=== PATIENT | male | born 1945 | race Caucasian/White ===

== ENCOUNTER → 2019-11-21 05:00 | Outpatient (REF) | payer MEDICARE, BC, OTHER, SELFPAY ==
[2019-11-21 07:29] LABS: Absolute Lymphocyte Count 1.79 X10^3/uL (0.83-4.51); Absolute Neutrophil Count 4.3 X10^3/uL (2.0-7.7); Basophil# 0.04 X10^3/uL; Basophil% 0.6 % (0-1); Eosinophil# 0.05 X10^3/uL; Eosinophils% 0.7 % (0-5); Hematocrit 51.9 % (40-54); Hemoglobin 16.9 g/dL (13.0-16.5); Lymphocyte # 1.79 X10^3/ul (4.0); Lymphocyte % 25.8 % (19-41); Mean Corp Hgb Conc 32.6 g/dL (32-36); Mean Corpuscular Hgb 29.8 pg (27.0-32.0); Mean Corpuscular Volume 91.5 fL (80-94); Mean Platelet Vol. 9.4 fl (6.2-12.0); Monocyte% 10.1 % (0-10); NRBC Flagged by Analyzer 0 % (0-5); Neutrophil # 4.34 X10^3/uL (2.7-7.7); Neutrophil % 62.5 % (47-70); Platelet Count 235 K/mm3 (150-450); RBC Distribution Width CV 13.3 % (11.6-14.6); Red Blood Count 5.67 M/mm3 (4.6-6.2); White Blood Count 6.9 K/mm3 (4.4-11.0)
[2019-11-21 08:59] LABS: Vitamin B12 717 pg/mL (211-911)
== END ==
LOC: OLS.BROOKB 05:00
PROVIDERS: Visit Provider Family Medicine
DX: D64.9 Anemia, unspecified (principal); F03.90 Unspecified dementia, unspecified severity, without behavioral disturbance, psychotic disturbance, mood disturbance, and anxiety; E78.5 Hyperlipidemia, unspecified
CPT/HCPCS: 36415; 82607; 85025

== ENCOUNTER → 2020-05-10 08:00 | Outpatient (REF) | payer MEDICARE, OTHER, BC, SELFPAY ==
[2020-05-09 10:48] VITALS: BMI 28.6
[2020-05-10 11:59] LABS: Hematocrit 51.5 % (40-54); Hemoglobin 16.2 g/dL (13.0-16.5); Mean Corp Hgb Conc 31.5 g/dL (32-36); Mean Corpuscular Hgb 29.8 pg (27.0-32.0); Mean Corpuscular Volume 94.7 fL (80-94); Mean Platelet Vol. 10.1 fl (6.2-12.0); Platelet Count 205 K/mm3 (150-450); RBC Distribution Width CV 13.4 % (11.6-14.6); RBC Distribution Width SD 46.5 fl (35.1-43.9); Red Blood Count 5.44 M/mm3 (4.6-6.2); White Blood Count 5.7 K/mm3 (4.4-11.0)
[2020-05-10 12:14] LABS: Vitamin B12 375 pg/mL (211-911)
[2020-05-10 12:25] LABS: AST(SGOT) 18 U/L (15-37); Alanine Aminotransfer ALT/SGPT 30 U/L (16-61); Albumin, Serum 3.5 g/dL (3.2-5.0); Alkaline Phosphatase 92 U/L (45-117); Anion Gap 0 (5-15); BUN 16 mg/dL (7-18); BUN/Creat Ratio 20.6 RATIO (10-20); Calcium,Total 9.1 mg/dL (8.5-10.1); Chloride 107 mmol/L (98-107); Creatinine, Serum 0.78 mg/dL (0.70-1.30); EST Glomerular Filtration Rate 104 mL/min (>60); Est Glom Filt Rate - Afr Amer 126 mL/min (>60); Globulin 3.5 g/dL (2.2-4.2); Glucose 87 mg/dL (74-106); Sodium Level 140 mmol/L (136-145); Thyroid Stim Hormone (TSH) 2.41 uIU/mL (0.358-3.74)
== END ==
LOC: OLS.BROOKB 08:00
DX: F03.90 Unspecified dementia, unspecified severity, without behavioral disturbance, psychotic disturbance, mood disturbance, and anxiety (principal); E78.5 Hyperlipidemia, unspecified; F41.9 Anxiety disorder, unspecified; Z86.010 Personal history of colon polyps
CPT/HCPCS: 80053; 82607; 82746; 84443; 85027

== ENCOUNTER → 2020-05-31 17:00 | Outpatient (REF) | payer MEDICARE, OTHER, BC, SELFPAY ==
[2020-05-09 10:48] VITALS: BMI 28.6
[2020-05-31 18:31] LABS: Absolute Lymphocyte Count 1.32 X10^3/uL (0.83-4.51); Absolute Neutrophil Count 3.3 X10^3/uL (2.0-7.7); Basophil# 0.03 X10^3/uL; Basophil% 0.6 % (0-1); Eosinophil# 0.07 X10^3/uL; Eosinophils% 1.3 % (0-5); Hematocrit 49.3 % (40-54); Hemoglobin 15.7 g/dL (13.0-16.5); Lymphocyte # 1.32 X10^3/ul (4.0); Lymphocyte % 24.6 % (19-41); Mean Corp Hgb Conc 31.8 g/dL (32-36); Mean Corpuscular Hgb 29.8 pg (27.0-32.0); Mean Corpuscular Volume 93.7 fL (80-94); Mean Platelet Vol. 9.9 fl (6.2-12.0); Monocyte# 0.58 X10^3/uL; Monocyte% 10.8 % (0-10); NRBC Flagged by Analyzer 0 % (0-5); Neutrophil # 3.34 X10^3/uL (2.7-7.7); Neutrophil % 62.3 % (47-70); Platelet Count 184 K/mm3 (150-450); RBC Distribution Width CV 13.5 % (11.6-14.6); Red Blood Count 5.26 M/mm3 (4.6-6.2); White Blood Count 5.4 K/mm3 (4.4-11.0)
== END ==
DX: Z79.899 Other long term (current) drug therapy (principal)
CPT/HCPCS: 82140; 85025

== ENCOUNTER → 2020-06-06 11:30 | Outpatient (REF) | payer MEDICARE, OTHER, SELFPAY ==
[2020-05-09 10:48] VITALS: BMI 28.6
[2020-06-06 15:21] LABS: Valproic Acid (Depakene) Level 15 ug/mL (50-100)
== END ==
DX: F03.90 Unspecified dementia, unspecified severity, without behavioral disturbance, psychotic disturbance, mood disturbance, and anxiety (principal); F33.9 Major depressive disorder, recurrent, unspecified; F41.9 Anxiety disorder, unspecified
CPT/HCPCS: 80164

== ENCOUNTER → 2020-06-17 16:58 | Outpatient (CLI) | payer MEDICARE, OTHER, SELFPAY ==
[2020-05-09 10:48] VITALS: BMI 28.6
== END ==
PROVIDERS: Referring Provider Nurse Practitioner Adult Health; Visit Provider Nurse Practitioner Adult Health
DX: R79.9 Abnormal finding of blood chemistry, unspecified (principal)
CPT/HCPCS: 87086

== ENCOUNTER → 2020-06-17 19:45 | Outpatient (REF) | payer MEDICARE, OTHER, SELFPAY ==
[2020-05-09 10:48] VITALS: BMI 28.6
[2020-06-18 07:24] LABS: Mucous, Urine 0 SEEN /hpf (<or=2+); Red Blood Cells-Urine 0 SEEN /hpf (0-5); Squamous Epithelial Cells - UA 0 SEEN /hpf (0-5)
[2020-06-18 07:44] LABS: Color, Urine Yellow (Yellow); Glucose, Dipstick Normal (Normal); Ketone-Dipstick 5 mg/dl (Negative); Leukocyte Esterase-Dipstick 500 /ul (Negative); Nitrite-Dipstick Negative (Negative); Occult Blood-Urine Negative /ul (Negative); Protein-Dipstick Negative (Negative); Specific Gravity, Urine 1.025 (1.002-1.030); Urine Bilirubin Dipstick Negative (Negative); Urine Clarity Clear (Clear); Urine Urobilinogen Normal (Normal)
[2020-06-18 07:58] LABS: White Blood Cells 5-10 SEEN /hpf (0-5)
[2020-06-18 07:59] LABS: Bacteria 2+ /hpf (None Seen)
== END ==
LOC: OLS.BROOKB 19:45
PROVIDERS: Visit Provider Family Medicine
DX: N39.0 Urinary tract infection, site not specified (principal); F41.9 Anxiety disorder, unspecified; E78.5 Hyperlipidemia, unspecified
CPT/HCPCS: 81001; 87086; 87088

== ENCOUNTER → 2020-07-16 08:20 | Outpatient (REF) | payer MEDICARE, OTHER, BC, SELFPAY ==
[2020-06-20 14:36] VITALS: BMI 28.6
[2020-07-16 10:58] LABS: AST(SGOT) 19 U/L (15-37); Alanine Aminotransfer ALT/SGPT 25 U/L (16-61); Anion Gap 2 (5-15); BUN 14 mg/dL (7-18); BUN/Creat Ratio 17.9 RATIO (10-20); Calcium,Total 8.9 mg/dL (8.5-10.1); Chloride 105 mmol/L (98-107); Cholesterol 197 mg/dL (200); Creatinine, Serum 0.78 mg/dL (0.70-1.30); EST Glomerular Filtration Rate 103 mL/min (>60); Est Glom Filt Rate - Afr Amer 125 mL/min (>60); Glucose 83 mg/dL (74-106); High Density Lipoprotein 68 mg/dL; Potassium 3.6 mmol/L (3.5-5.1); Sodium Level 142 mmol/L (136-145); Triglycerides 99 mg/dL; Very Low Density Lipoprotein 20 mg/dL (5-40)
== END ==
LOC: OLS.BROOKB 08:20
PROVIDERS: Referring Provider Family Medicine; Visit Provider Family Medicine
DX: F03.90 Unspecified dementia, unspecified severity, without behavioral disturbance, psychotic disturbance, mood disturbance, and anxiety (principal); E78.5 Hyperlipidemia, unspecified
CPT/HCPCS: 80048; 80061; 84450; 84460

== ENCOUNTER 2020-08-17 10:45 | Observation (INO) | payer MEDICARE, OTHER, BC, SELFPAY ==
[2020-06-20 14:36] VITALS: BMI 28.6
[2020-08-17] VITALS (16 sets, daily range): BP systolic 139–176; BP diastolic 76–97; PULSE 52–68; RESP 9–23; TEMP 36.6–36.7; O2SAT 94–99; BMI 27.3; BMI 27.1
--- NOTE | 2020-08-17 10:50 | EKG12_ITS ---
Test Reason : WEAKNESS Blood Pressure : / mmHG Vent. Rate : 060 BPM Atrial Rate : 060 BPM P-R Int : 126 ms QRS Dur : 088 ms QT Int : 464 ms P-R-T Axes : 060 -42 023 degrees QTc Int : 464 ms Normal sinus rhythm Left axis deviation Abnormal ECG Confirmed by JERI ESPINOSA, HUNTER ([id number]), assistant production editor AUBREE CASTELLANOS ([id number]) on 08/20/2020 10:20:49 AM Referred By: DC Confirmed By:HUNTER WILCOX MD
--- NOTE | 2020-08-17 10:50 | CT_ITS ---
We are attempting to reach an attending provider to discuss findings. An addendum with communication details will be sent when the communication is complete. STUDY: CT BRAIN WITHOUT CONTRAST REASON FOR EXAM: Male, 74 years old. WEAKNESS RADIATION DOSAGE (If Supplied By Facility): CTDIvol = ( 44.99 ) mGy, DLP = ( 812.98 ) mGycm TECHNIQUE: Transaxial CT imaging of the brain was performed without administration of intravenous contrast material. Individualized dose optimization techniques were used for this CT. COMPARISON: No relevant priors. FINDINGS: Normal soft tissue structures. Normal calvarium. Slightly prominent ventricles and extra-axial spaces with mild atrophy. Bilateral white matter microangiopathic ischemic changes of the cerebral hemispheres. Normal basal ganglia and thalami. Normal brainstem. Normal cerebellum. There is no intracranial hemorrhage. There are no findings of an acute ischemic infarction. Normal visualized paranasal sinuses. CT/Brain/Head without Contrast IMPRESSION: Mild age-related changes of the brain. Electronically Signed: Juan Chinchilla DO at 11:15 EDT Tel [phone], Service support ,
--- NOTE | 2020-08-17 10:52 | ED.DCSUM_ITS ---
- ER Visit Summary Date of Service: 08/17/20 Chief Complaint: Possible stroke, patient has no complaints History of Present Illness: The patient is a 74 M with a history of dementia, full code. He presents from his nursing facility by EMS. He was last known well at 7:30 AM today. At 8:30 AM he was noted to be leaning to the left with a shuffling gait. This is different from his normal baseline. Currently the patient has no complaints. EMS did not notice any focal neurologic abnormalities. Physical Examination: Vital signs reviewed. Patient does not know his age or the month, otherwise his stroke scale was normal. Heart regular. Lungs clear. Abdomen soft. Test Results: CT, chest x-ray, EKG, labs pending Emergency Department Course and Treatment: Patient was seen immediately on arrival. His NIH stroke scale is normal except he does not know the month and his age. This may be normal for him at his baseline. He is not a TPA candidate. Will evaluate him and plan on admitting him here. CT was unremarkable. Chest x-ray normal. EKG showed sinus rhythm at a rate of 60. No signs of ischemia or infarction pattern. CBC, BMP, coags, troponin unremarkable. Urinalysis is pending. Patient had no further symptoms. Will contact the hospitalist to admit for further care. Treatment Plan: As above Disposition: Admission Impression: Abnormality of gait This note was generated with [employer] dictation software. It may contain incorrect words, spelling, and punctuation that were not noted in review of the chart prior to signing ED Disposition - Plan for ED Patient: Referrals: [facility] Doctor,Out of [NON-STAFF] -
--- NOTE | 2020-08-17 11:00 | RAD_ITS ---
STUDY: X-RAY CHEST REASON FOR EXAM: Male, 74 years old. WEAKNESS, SHUFFLED GAIT AND LEANING TO LEFT WHILE AMBULATING THAT RESOLVED. SPILLING FOOD FROM FORK. FIRST NOTICED AT 0830. TECHNIQUE: Single AP portable view of the chest. COMPARISON: None. FINDINGS: The lungs are clear and expanded. There is no demonstrated pleural abnormality. Normal size heart. Normal mediastinum and fermín. Normal visualized pulmonary arteries. Normal visualized aortic arch and descending thoracic aorta. Normal visualized thoracic spine. Normal visualized ribs, clavicles, and shoulders. There is no demonstrated abnormality of the visualized soft tissue structures of the upper abdomen. RAD/Chest 1 View IMPRESSION: Normal x-ray examination of the chest. Electronically Signed: Jamar Lopez MD at 11:30 EDT Tel , Service support ,
--- NOTE | 2020-08-17 11:00 | ED.RN ---
PT HAS DEMENTIA, REASON FOR SCORING 2 ON QUESTIONS ASKED.
[2020-08-17 11:30] LABS: Bedside Glucose 108 mg/dL (70-110)
[2020-08-17 11:33] LABS: Absolute Neutrophil Count 3.6 X10^3/uL (2.0-7.7); Basophil# 0.03 X10^3/uL; Basophil% 0.5 % (0-1); Eosinophil# 0.06 X10^3/uL; Eosinophils% 1.1 % (0-5); Hematocrit 47.1 % (40-54); Lymphocyte % 21.9 % (19-41); Mean Corp Hgb Conc 31.8 g/dL (32-36); Mean Corpuscular Hgb 30.2 pg (27.0-32.0); Mean Corpuscular Volume 94.8 fL (80-94); Mean Platelet Vol. 9.5 fl (6.2-12.0); Monocyte# 0.58 X10^3/uL; Monocyte% 10.6 % (0-10); NRBC Flagged by Analyzer 0 % (0-5); Neutrophil % 65.7 % (47-70); Platelet Count 153 K/mm3 (150-450); RBC Distribution Width CV 13.4 % (11.6-14.6); RBC Distribution Width SD 47.1 fl (35.1-43.9); Red Blood Count 4.97 M/mm3 (4.6-6.2); White Blood Count 5.5 K/mm3 (4.4-11.0)
[2020-08-17 11:59] LABS: Anion Gap 2 (5-15); BUN 13 mg/dL (7-18); BUN/Creat Ratio 16.4 RATIO (10-20); Calcium,Total 8.7 mg/dL (8.5-10.1); Chloride 107 mmol/L (98-107); Creatinine, Serum 0.79 mg/dL (0.70-1.30); EST Glomerular Filtration Rate 101 mL/min (>60); Est Glom Filt Rate - Afr Amer 123 mL/min (>60); Estimated Creatinine Clearance 66.92 ml/min; Glucose 99 mg/dL (74-106); Sodium Level 141 mmol/L (136-145)
[2020-08-17 12:05] LABS: Prothrombin Time (Protime)PT. 12.9 SECONDS (11.7-14.9)
[2020-08-17 12:06] LABS: Partial Thromboplast Time 28.8 Seconds (24.1-36.2)
[2020-08-17 12:09] LABS: Color, Urine Straw (Yellow); Glucose, Dipstick Normal (Normal); Ketone-Dipstick Negative (Negative); Leukocyte Esterase-Dipstick 25 /ul (Negative); Nitrite-Dipstick Negative (Negative); Occult Blood-Urine Negative /ul (Negative); Protein-Dipstick 15 mg/dl (Negative); Red Blood Cells-Urine 0 SEEN /hpf (0-5); Squamous Epithelial Cells - UA 0 SEEN /hpf (0-5); Urine Bilirubin Dipstick Negative (Negative); Urine Clarity Clear (Clear); Urine Urobilinogen Normal (Normal)
[2020-08-17 12:38] LABS: White Blood Cells 0-5 SEEN /hpf (0-5)
[2020-08-17 12:39] LABS: Bacteria 1+ /hpf (None Seen); Mucous, Urine 1+ /hpf (<or=2+)
--- NOTE | 2020-08-17 13:28 | HP.PCM_ITS ---
History of Present Illness Date of Admission: 08/17/20 Chief Complaint: shuffling gait The patient is a 74 year old M with a past medical history as outlined which includes dementia. He was [facility] after he was noted to be leaning on his left side and ambulating with a shuffling gait. This was different from his normal baseline. He was not noted to have any slurring of his speech, neither did he complain of any blurred vision or any mouth droop. He had no weakness in any extremity he denied any diabetes or take late. Review of systems otherwise negative. He has never had such symptoms before and his last normal was around 7:30 AM on day of admission. In the ED, at time of review, vitals were temperature of 97.9 with blood pressure of 176/96, pulse rate of 68 and respiratory of 23. Was saturating at 97% on room air. Chemistry was essentially unremarkable and CBC was also unremarkable. CT of the brain showed only mild age-related changes of the brain. This x-ray showed no acute cardiopulmonary changes. He has been admitted to be managed for TIA to rule out a stroke. 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 Shortened FL interval R94.31 Allergies No Known Allergies Allergy (Verified 08/17/20 10:52) Home Medications: Ambulatory Orders Medication Instructions Recorded aspirin 81 mg tablet,delayed 81 mg PO QDAY tab 12/20/17 release donepezil 23 mg tablet 23 mg PO QHS tab 12/20/17 memantine 10 mg tablet 10 mg PO BID 12/20/17 naproxen sodium 220 mg tablet 220 mg PO Q8H PRN tab 12/20/17 pravastatin 40 mg tablet 40 mg PO QHS 12/20/17 acetaminophen 325 mg capsule 325 mg PO Q4H PRN cap 05/09/20 alprazolam 0.5 mg tablet 1 mg PO BID tab 05/09/20 colestipol 1 gram tablet 1 g PO 4X/DAY PRN 05/09/20 cyanocobalamin (vitamin B-12) 1,000 mcg IM UD 05/09/20 1,000 mcg/mL injection kit escitalopram oxalate 10 mg tablet 20 mg PO QDAY tab 05/09/20 omeprazole 40 mg capsule,delayed 40 mg PO DAILY 05/09/20 release pramipexole 0.25 mg tablet 0.25 mg PO QHS 05/09/20 Acetaminophen 500 mg PO TID 08/17/20 Buspirone HCl 10 mg PO TID 08/17/20 Divalproex Sodium [Depakote] 125 mg PO DAILY 08/17/20 Divalproex Sodium [Depakote] 250 mg PO QHS 08/17/20 Mirabegron [Myrbetriq] 25 mg PO DAILY 08/17/20 hydrOXYzine pamoate capsule 25 mg PO BID PRN PRN 08/17/20 [Vistaril pamoate capsule] Surgical History: no surgical history Psychiatric History: - - dementia Lives: Roommate Smoking Status: Former smoker Alcohol: None Drugs: None - *Family History Maternal Family History: Family History (Last Reviewed 06/20/20 @ 14:24 by Paris Malin) Mother Breast cancer Sister Breast cancer Father Cancer Review of Systems Constitutional: Denies: Chills, Fever, Malaise, Weakness, Weight Change Eyes: Denies: Blurred vision HEENT: Denies: Head Aches, Sinus Congestion, Sinus Drainage Cardiovascular: Denies: Chest Pain, Chest Pressure, Chest Tightness, Edema, Heaviness, Light Headedness, Orthopnea, Palpitations, Syncope Respiratory: Denies: Cough, Shortness of Breath, Shortness of breath at rest, Shortness of breath upon exertion, Sputum production Gastrointestinal: Denies: Abdominal Pain, Nausea, Vomiting Genitourinary: Denies: Dysuria Musculoskeletal: Denies: Joint Pain, Joint Tenderness Skin: Denies: Rash, Wounds Neurological: Denies: Blurred vision, Slurred speech, Focal weakness, Numbness, Tingling Psychiatric: Denies: Anxiety, Depression, Homicidal Ideations, Suicidal Ideations Hematologic/ Lymphatic: Denies: Easy Bruising, Easy Bleeding VTE Information - Inpt Only VTE Present on Admission: No VTE Pharm Prophylaxis ordered?: Yes - Physical Exam Vitals/I&O's: Vital Signs Temp Pulse Resp BP Pulse Ox 97.9 F 68 23 H 176/96 H 97 08/17/20 13:19 08/17/20 13:19 08/17/20 13:19 08/17/20 13:19 08/17/20 13:19 Oxygen Delivery Method Room Air Weight: 190 lb 14.725 oz Body Mass Index (BMI) 27.3 Finger Stick Blood Glucose 108 General: Alert, Oriented x3, Cooperative, No apparent distress HEENT: Atraumatic, PERRLA, EOMI, Normocephalic Oral: Dry Mucosa Neck: Supple, No JVD, Negative Carotid Bruits Lungs: Clear to auscultation, Normal air movement, No rhonchi, No wheeze, No rales Cardiovascular: Regular rate, Regular Rhythm, Normal S1, Normal S2, No murmurs Abdomen: Bowel Sounds Present, Soft, Non Tender, Non-Distended, No Hepato- splenomegaly Extremities: No clubbing, No cyanosis, No edema, Capillary Refill Less than 3 Seconds Skin: No rashes, No breakdown Musculoskeletal: No Tenderness to Palpation of Joints or Extremities Lymphatic: No Cervical, Supraclavicular, or Inguinal Adenopathy Neurological: Cranial nerves II-XII grossly intact, Neuro grossly intact, Motor Exam 5/5 strength throughout, - - NIHSS is 0 Psych/Mental Status: Normal Affect, Appropriate, Alert and oriented to time, place, person, mood and affect Laboratory Results 08/17/20 11:10: POC Glucose 108 08/17/20 11:25: WBC 5.5, RBC 4.97, Hgb 15.0, Hct 47.1, MCV 94.8 H, MCH 30.2, MCHC 31.8 L, RDW Std Deviation 47.1 H, RDW Coeff of Ryan 13.4, Plt Count 153, MPV 9.5, Immature Gran % (Auto) 0.200, Neut % (Auto) 65.7, Lymph % (Auto) 21.9, [place] % (Auto) 10.6 H, Eos % (Auto) 1.1, Baso % (Auto) 0.5, Absolute Neuts (auto) 3.6, Absolute Lymphs (auto) 1.20, Nucleated RBC % 0 08/17/20 11:25: PT 12.9, INR 1.0, APTT 28.8 08/17/20 11:25: Sodium 141, Potassium 4.0, Chloride 107, Carbon Dioxide 32.0, Anion Gap 2 L, BUN 13, Creatinine 0.79, Estim Creat Clear Calc 66.92, Est GFR (MDRD) Af Amer 123, Est GFR (MDRD) Non-Af 101, BUN/Creatinine Ratio 16.4, Glucose 99, Calcium 8.7, Troponin I < 0.015 08/17/20 12:00: Urine Color Straw, Urine Clarity Clear, Urine pH 7.0, Ur Specific [place] 1.010, Urine Protein 15 H, Urine Glucose (UA) Normal, Urine Ketones Negative, Urine Occult Blood Negative, Urine Nitrite Negative, Urine Bilirubin Negative, Urine Urobilinogen Normal, Ur Leukocyte Esterase 25 H, Urine RBC 0 SEEN, Urine WBC 0-5 SEEN, Ur Squamous Epith Cells 0 SEEN, Urine Bacteria 1+, Urine Mucus 1+ Diagnostic Data Brain CT 08/17/20 10:50 IMPRESSION: Mild age-related changes of the brain. Electronically Signed: Juan Chinchilla DO at 11:15 EDT Tel [phone], Service support , ADDENDUM: 08/17/20 1122 IMPRESSION: Mild age-related changes of the brain. N.B. : The above information has been verbally conveyed by Juan Chinchilla DO to Dr. Mac [id number], on 08/17/2020 11:15:24 (ET). Electronically Signed: Juan Chinchilla DO at 11:15 EDT Tel [phone], Service support , Chest X-Ray 08/17/20 11:00 IMPRESSION: Normal x-ray examination of the chest. Electronically Signed: Jamar Lopez MD at 11:30 EDT Tel , Service support , Current Medications Labetalol HCl (Labetalol (Prefilled) 20 Mg/4 Ml) 20 mg IV X1 PRN PRN Reason: BLOOD PRESSURE Assessment/Plan All Active Problems (Last Reviewed 06/20/20 @ 14:24 by Paris Malin) Dyspnea on exertion (Acute) Fatigue (Acute) 74-year-old male admitted with a complaint of shuffling gait and favoring his left side. # Probable TIA * Admits to PCU with telemetry * CT of the brain was negative for any stroke * P.o. aspirin 81 mg daily * Allow for permissive hypertension for 24 to 48 hours. * PT OT consults. Fall precautions. * Consult neurology if MRI is positive. To get MRI of the brain. * 2D echo. * #Hypertension: * Not on any blood pressure medications per med rec. * Blood pressures in the 170s systolic. * allow for permissive hypertension for 24-48 hours, then goal blood pressure will be 130/85 or less. * will start BP meds as needed * Dementia: On donepezil and memantine DVT prophylaxis: SCDs OBSV E&M: 73291 Initial observation care L2
--- NOTE | 2020-08-17 15:52 | CASEMGMT ---
PHQ-9 not completed as pt has dementia. JIGAR Bartlett
[2020-08-17 15:57] LABS: Cholesterol 161 mg/dL (200); High Density Lipoprotein 60 mg/dL; Triglycerides 124 mg/dL; Very Low Density Lipoprotein 25 mg/dL (5-40)
--- NOTE | 2020-08-17 16:06 | CASEMGMT ---
SW reviewed chart, pt is here from [facility]. It is anticipated he will be able to return at discharge. SW called daughter Mei, confirmed family wants pt to return to [facility] at discharge, and she will transport him. SW called [facility], confirmed pt can return but will need a COVID test prior to returning. They are okay w/pt's daughter transporting pt back to the facility at discharge. Green sheet with COVID screening form placed on the chart. JIGAR Bartlett
[2020-08-17] MEDS: Divalproex Sodium 250 MG Tablet PO (21:51)
[2020-08-17] MEDS: ALPRAZolam 0.5 MG Tablet 1 MG PO (21:51)
[2020-08-17] MEDS: Donepezil HCl 10 MG Tablet 20 MG PO (21:52)
[2020-08-17] MEDS: busPIRone 5 MG Tablet 10 MG PO (21:52)
[2020-08-17] MEDS: Pramipexole Di-HCl 0.25 MG Tablet PO (21:53)
[2020-08-17] MEDS: Atorvastatin Calcium 80 MG Tablet PO (21:53)
[2020-08-17] MEDS: Memantine Hydrochloride 10 MG Tablet PO (21:53)
[2020-08-18] VITALS (10 sets, daily range): BP systolic 137–176; BP diastolic 76–93; PULSE 50–65; RESP 11–18; TEMP 36.6–36.7; O2SAT 93–97
[2020-08-18] MEDS: busPIRone 5 MG Tablet 10 MG PO ×3 (05:41→20:39)
[2020-08-18 07:13] LABS: Absolute Lymphocyte Count 1.65 X10^3/uL (0.83-4.51); Absolute Neutrophil Count 4.6 X10^3/uL (2.0-7.7); Basophil# 0.04 X10^3/uL; Basophil% 0.6 % (0-1); Eosinophil# 0.06 X10^3/uL; Eosinophils% 0.8 % (0-5); Hematocrit 48.2 % (40-54); Hemoglobin 15.3 g/dL (13.0-16.5); Lymphocyte # 1.65 X10^3/ul (4.0); Lymphocyte % 22.9 % (19-41); Mean Corp Hgb Conc 31.7 g/dL (32-36); Mean Corpuscular Hgb 29.5 pg (27.0-32.0); Mean Corpuscular Volume 93.1 fL (80-94); Mean Platelet Vol. 9.6 fl (6.2-12.0); Monocyte# 0.81 X10^3/uL; Monocyte% 11.2 % (0-10); NRBC Flagged by Analyzer 0 % (0-5); Neutrophil # 4.64 X10^3/uL (2.7-7.7); Neutrophil % 64.2 % (47-70); Platelet Count 157 K/mm3 (150-450); RBC Distribution Width CV 13.2 % (11.6-14.6); RBC Distribution Width SD 45.6 fl (35.1-43.9); Red Blood Count 5.18 M/mm3 (4.6-6.2); White Blood Count 7.2 K/mm3 (4.4-11.0)
[2020-08-18 07:28] LABS: Anion Gap 4 (5-15); BUN 13 mg/dL (7-18); BUN/Creat Ratio 16.3 RATIO (10-20); Calcium,Total 8.9 mg/dL (8.5-10.1); Chloride 106 mmol/L (98-107); EST Glomerular Filtration Rate 101 mL/min (>60); Est Glom Filt Rate - Afr Amer 122 mL/min (>60); Estimated Creatinine Clearance 81.01 ml/min; Glucose 88 mg/dL (74-106); Potassium 3.8 mmol/L (3.5-5.1); Sodium Level 141 mmol/L (136-145)
--- NOTE | 2020-08-18 07:52 | PN_ITS ---
Subjective: Patient seen and examined. He had no complaints today. He is being managed for TIA. He is awaiting MRI and 2D echo. Review of symptoms otherwise negative. He is noted to be bradycardic with heart rate of 51. Vitals have been stable otherwise. Vitals/I&O's: Vital Signs Temp Pulse Resp BP Pulse Ox 98.1 F 51 L 13 151/77 H 95 08/18/20 05:30 08/18/20 05:30 08/18/20 05:30 08/18/20 05:30 08/18/20 05:30 Oxygen Delivery Method Room Air Weight: 183 lb 10.321 oz Body Mass Index (BMI) 27.1 Finger Stick Blood Glucose 108 Intake and Output for Last 24 Hours 08/16/20 08/17/20 08/18/20 23:59 23:59 23:59 Intake Total 300 / 300 0 / 0 Output Total 400 / 400 Balance -100 / -100 0 / 0 General: Alert, Oriented x3, Cooperative, No apparent distress HEENT: Atraumatic, PERRLA, EOMI, Normocephalic Oral: Dry Mucosa Neck: Supple, No JVD, Negative Carotid Bruits Lungs: Clear to auscultation, Normal air movement, No rhonchi, No wheeze, No rales Cardiovascular: Regular rate, Regular Rhythm, Normal S1, Normal S2, No murmurs Abdomen: Bowel Sounds Present, Soft, Non Tender, Non-Distended, No Hepato- splenomegaly Extremities: No clubbing, No cyanosis, No edema, Capillary Refill Less than 3 Seconds Skin: No rashes, No breakdown Musculoskeletal: No Tenderness to Palpation of Joints or Extremities Lymphatic: No Cervical, Supraclavicular, or Inguinal Adenopathy Neurological: Cranial nerves II-XII grossly intact, Neuro grossly intact, Motor Exam 5/5 strength throughout, - - NIHSS is 0 Psych/Mental Status: Normal Affect, Appropriate, Alert and oriented to time, place, person, mood and affect Laboratory Results 08/17/20 11:10: POC Glucose 108 08/17/20 11:25: WBC 5.5, RBC 4.97, Hgb 15.0, Hct 47.1, MCV 94.8 H, MCH 30.2, MCHC 31.8 L, RDW Std Deviation 47.1 H, RDW Coeff of Ryan 13.4, Plt Count 153, MPV 9.5, Immature Gran % (Auto) 0.200, Neut % (Auto) 65.7, Lymph % (Auto) 21.9, Yates % (Auto) 10.6 H, Eos % (Auto) 1.1, Baso % (Auto) 0.5, Absolute Neuts (auto) 3.6, Absolute Lymphs (auto) 1.20, Nucleated RBC % 0 08/17/20 11:25: PT 12.9, INR 1.0, APTT 28.8 08/17/20 11:25: Sodium 141, Potassium 4.0, Chloride 107, Carbon Dioxide 32.0, Anion Gap 2 L, BUN 13, Creatinine 0.79, Estim Creat Clear Calc 66.92, Est GFR (MDRD) Af Amer 123, Est GFR (MDRD) Non-Af 101, BUN/Creatinine Ratio 16.4, Glucose 99, Calcium 8.7, Troponin I < 0.015 08/17/20 11:25: Triglycerides 124, Cholesterol 161, LDL Cholesterol 76, VLDL Cholesterol 25, HDL Cholesterol 60 08/17/20 12:00: Urine Color Straw, Urine Clarity Clear, Urine pH 7.0, Ur Specific [place] 1.010, Urine Protein 15 H, Urine Glucose (UA) Normal, Urine Ketones Negative, Urine Occult Blood Negative, Urine Nitrite Negative, Urine Bilirubin Negative, Urine Urobilinogen Normal, Ur Leukocyte Esterase 25 H, Urine RBC 0 SEEN, Urine WBC 0-5 SEEN, Ur Squamous Epith Cells 0 SEEN, Urine Bacteria 1+, Urine Mucus 1+ 08/17/20 15:00: Troponin I < 0.015 08/18/20 06:45: WBC 7.2, RBC 5.18, Hgb 15.3, Hct 48.2, MCV 93.1, MCH 29.5, MCHC 31.7 L, RDW Std Deviation 45.6 H, RDW Coeff of Ryan 13.2, Plt Count 157, MPV 9.6, Immature Gran % (Auto) 0.300, Neut % (Auto) 64.2, Lymph % (Auto) 22.9, [place]ates % (Auto) 11.2 H, Eos % (Auto) 0.8, Baso % (Auto) 0.6, Absolute Neuts (auto) 4.6, Absolute Lymphs (auto) 1.65, Nucleated RBC % 0 08/18/20 06:45: Sodium 141, Potassium 3.8, Chloride 106, Carbon Dioxide 31.0, Anion Gap 4 L, BUN 13, Creatinine 0.80, Estim Creat Clear Calc 81.01, Est GFR (MDRD) Af Amer 122, Est GFR (MDRD) Non-Af 101, BUN/Creatinine Ratio 16.3, Glucose 88, Calcium 8.9 Current Medications Acetaminophen (Acetaminophen 325 Mg Tablet) 325 mg PO Q4H PRN PRN Reason: Pain 1-10 or Fever Alprazolam (Alprazolam 0.5 Mg Tablet) 1 mg PO BID ON LICENSE OF [facility] Last Admin: 08/17/20 21:51 Dose: 1 mg Documented by: Aspirin (Aspirin E.C. 81 Mg Tablet) [facility] Atorvastatin Calcium (Atorvastatin Calcium 80 Mg Tablet) 80 mg PO QHS ON LICENSE OF [facility] Last Admin: 08/17/20 21:53 Dose: 80 mg Documented by: Buspirone HCl (Buspirone 5 Mg Tablet) 10 mg PO TID ON LICENSE OF [facility] Last Admin: 08/18/20 05:41 Dose: 10 mg Documented by: Colestipol HCl (Colestipol Hcl 1 Gm Tablet) 1 gm PO DAILY ON LICENSE OF [facility] Divalproex Sodium (Divalproex Sodium 125 Mg Tablet) [facility] Divalproex Sodium (Divalproex Sodium 250 Mg Tablet) 250 mg PO QHS ON LICENSE OF [facility] Last Admin: 08/17/20 21:51 Dose: 250 mg Documented by: Donepezil HCl (Donepezil Hcl 10 Mg Tablet) 20 mg PO QHS ON LICENSE OF [facility] Last Admin: 08/17/20 21:52 Dose: 20 mg Documented by: Escitalopram Oxalate (Escitalopram Oxalate 10 Mg Tablet) 20 mg PO DAILY ON LICENSE OF [facility] Hydralazine HCl (Hydralazine 20 Mg/Ml Vial) 5 mg IV Q30M PRN PRN Reason: to maintain BP goals Hydroxyzine Pamoate (Hydroxyzine Génesis 25 Mg Capsule) 25 mg PO BID PRN PRN PRN Reason: ANXIETY Sodium Chloride () 500 mls @ 15 mls/hr IV PRN PRN PRN Reason: Blood Transfusion Sodium Chloride () 250 mls @ 15 mls/hr IV .[id number] PRN PRN Reason: Saline Flush Sodium Chloride () 250 mls @ 15 mls/hr IV .[id number] PRN PRN Reason: Additional IVPB Infusion Labetalol HCl (Labetalol (Prefilled) 20 Mg/4 Ml) 10 - 20 mg IV Q10M PRN PRN PRN Reason: to Maintain BP Goals Memantine (Memantine Hydrochloride 10 Mg Tablet) 10 mg PO BID ON LICENSE OF [facility] Last Admin: 08/17/20 21:53 Dose: 10 mg Documented by: Mirabegron (Mirabegron 25 Mg Tab.Er.24h) 25 mg PO DAILY ON LICENSE OF [facility] Naproxen (Naproxen 250 Mg Tablet) 250 mg PO Q12H PRN PRN Reason: Pain Score 1-10 Nitroglycerin (Nitroglycerin (Inpatient Use) 0.4 Mg Tab.Subl) 0.4 mg SUBLINGUAL Q5M PRN PRN Reason: CARDIAC/CHEST PAIN Non-Formulary Medication (Cyanocobalamin (Vitamin B-12) [B-12 Compliance]) 1,000 mcg IM QMONTH ON LICENSE OF [facility] Ondansetron HCl (Ondansetron 4 Mg/2 Ml Vial) 4 mg IV Q8H PRN PRN PRN Reason: NAUSEA/VOMITING Pantoprazole Sodium (Pantoprazole Sodium 40 Mg Tablet) 40 mg PO DAILY ON LICENSE OF [facility] Pramipexole Dihydrochloride (Pramipexole Di-Hcl 0.25 Mg Tablet) 0.25 mg PO QHS ON LICENSE OF [facility] Last Admin: 08/17/20 21:53 Dose: 0.25 mg Documented by: Sodium Chloride (0.9% Saline Lock 10 Ml Syringe) 10 - 40 ml IV UD PRN PRN Reason: SALINE FLUSH STROKE Vital Signs/Narrative: Vital Signs Temp Pulse Resp BP Pulse Ox 08/18/20 05:30 98.1 F 51 L 13 151/77 H 95 Medical Necessity - Tobacco Use Smoking Status: Former smoker Assessment/Plan All Active Problems (Last Reviewed 06/20/20 @ 14:24 by Paris Malin) Dyspnea on exertion (Acute) Fatigue (Acute) 74-year-old male admitted with a complaint of shuffling gait and favoring his left side. # Probable TIA * has no complaints. * NIHSS is 0 * for MRI of brain, MRA of the head and neck and 2D echo * on aspirin and high intensity statin * #Hypertension: * Not on any blood pressure medications per med rec. * Blood pressures in the 10s systolic. * will start on BP meds to keep BP controlled. * Dementia: On donepezil and memantine DVT prophylaxis: SCDs OBSV E&M: 41194 Subsequent observation care L2
--- NOTE | 2020-08-18 09:00 | MRI_ITS ---
STUDY: MRI BRAIN WITHOUT CONTRAST REASON FOR EXAM: Male, 74 years old. TIA, WEAKNESS, UNSTEADY GAIT TECHNIQUE: Standardized multiplanar fat and water weighted pulse sequences were obtained. COMPARISON: CT 08/17/2020 FINDINGS: There is moderate cerebral atrophy with widening of the extra-axial spaces and ventricular dilatation. There are a limited number of small white matter hyperintensities, distributed throughout the deep white matter tracts of the cerebral hemispheres, consistent with mild chronic white matter ischemic changes. There is no evidence for recent intracranial ischemia or other cause of cytotoxic edema on diffusion weighted imaging (DWI). Normal T2* images of the brain without demonstrated susceptibility artifact. There is no demonstrated hemosiderin stain. Normal bilateral basal ganglia. Normal thalami. There is no extra-axial fluid accumulation. Normal flow voids within the major intracranial circulation suggesting patency by spin echo criteria. Normal sella turcica, pituitary gland, infundibular stalk, optic chiasm and hypothalamus. Normal tectal plate and pineal gland. Normal midbrain, richy and medulla. Normal cerebellum. Normal basal cisterns. There is mild chronic otomastoiditis of the right temporal bone. Normal bilateral internal auditory canals. No demonstrated orbital abnormality, within the constraints of a routine brain study. Normal visualized paranasal sinuses. Normal calvarium and skull base. Normal visualized soft tissue structures. Normal visualized upper cervical spine. MRI/Brain without Contrast IMPRESSION: Involutional changes of the brain, as described above. No acute infarct. Electronically Signed: Jamar Lopez MD at 11:36 EDT Tel , Service support ,
--- NOTE | 2020-08-18 09:00 | MRI_ITS ---
STUDY: MRA OF THE HEAD WITHOUT CONTRAST REASON FOR EXAM: Male, 74 years old. TIA, DEMENTIA, WEAKNESS TECHNIQUE: 3-D [id number] (TOF) imaging was performed with MIPs. The study was performed unenhanced. COMPARISON: None. FINDINGS: Normal bilateral petrous carotid arteries. Normal right cavernous carotid artery with a normal supraclinoid bifurcation. Normal left cavernous carotid artery with a normal supraclinoid bifurcation. Normal right A1 segments of the anterior cerebral artery. Normal left A1 segments of the anterior cerebral artery. Normal intact anterior communicating artery (ACOM). Normal bilateral A2 segments of the anterior cerebral arteries. Normal right M1 and M2 segments of the middle cerebral arteries, with a normal M1 bifurcation. Normal left M1 and M2 segments of the middle cerebral arteries, with a normal M1 bifurcation. 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 Normal left posterior communicating artery (PCOM). Normal bilateral vertebral arteries. Normal basilar artery with a normal basilar bifurcation. The visualized bilateral superior cerebellar (SCA) arteries are normal. Normal bilateral P1, P2 and visualized P3 segments of the posterior cerebral arteries. There is no demonstrated aneurysm of the [place]. There is no major vessel occlusion or hemodynamically significant stenosis. There is no demonstrated abnormality of the visualized brain. MRI/MRA Head ONLY without Contrast IMPRESSION: Normal MRA of the head Electronically Signed: Jamar Lopez MD at 12:08 EDT Tel , Service support ,
--- NOTE | 2020-08-18 09:00 | MRI_ITS ---
STUDY: MRA NECK WITH AND WITHOUT CONTRAST REASON FOR EXAM: Male, 74 years old. WEAKNESS,TIA, DEMENTIA TECHNIQUE: 3-D [id number] (TOF) imaging was performed in an 1.5 T MRI scanner. dotarem 15ml iv was administered for the contrast enhanced images. COMPARISON: None. FINDINGS: RIGHT CAROTID ARTERIES: Normal right common carotid artery (CCA). Normal right common carotid bulb. Normal origin of the right internal carotid (ICA) artery without a hemodynamically significant stenosis. Normal visualized cervical portion of the right internal carotid artery. Normal origin of the right external carotid artery (ECA). LEFT CAROTID ARTERIES: Normal left common carotid artery (CCA). Normal left common carotid bulb. Normal origin of the left internal carotid (ICA) artery without a hemodynamically significant stenosis. Normal visualized cervical portion of the left internal carotid artery. Normal origin of the left external carotid artery (ECA). VERTEBRAL ARTERIES: Normal antegrade flow within the bilateral vertebral artery without a hemodynamically significant stenosis. MRI/MRA Neck WITH and W/O Contrast IMPRESSION: Normal bilateral cervical carotid and vertebral arteries. Electronically Signed: Jamar Lopez MD at 12:11 EDT Tel , Service support ,
[2020-08-18] MEDS: 0.9% Saline Lock 10 ML Syringe IV (09:17)
[2020-08-18] MEDS: Aspirin E.C. 81 MG Tablet PO (09:18)
[2020-08-18] MEDS: Divalproex Sodium 125 MG Tablet PO (09:18)
[2020-08-18] MEDS: Escitalopram Oxalate 10 MG Tablet 20 MG PO (09:18)
[2020-08-18] MEDS: Pantoprazole Sodium 40 MG Tablet PO (09:19)
[2020-08-18] MEDS: Memantine Hydrochloride 10 MG Tablet PO ×2 (09:19→20:39)
[2020-08-18] MEDS: Mirabegron 25 MG TAB.ER.24H PO (09:19)
[2020-08-18] MEDS: ALPRAZolam 0.5 MG Tablet 1 MG PO ×2 (09:20→20:46)
--- NOTE | 2020-08-18 13:48 | NURSING ---
spoke with Sury, nurse at [facility]. Last Vit B-12 injection 07/21/2020. Updated on home med rec and pharmacy updated as well.
[2020-08-18] MEDS: Pramipexole Di-HCl 0.25 MG Tablet PO (20:39)
[2020-08-18] MEDS: Donepezil HCl 10 MG Tablet 20 MG PO (20:39)
[2020-08-18] MEDS: Atorvastatin Calcium 80 MG Tablet PO (20:39)
[2020-08-18] MEDS: Divalproex Sodium 250 MG Tablet PO (20:39)
[2020-08-19 02:50] VITALS: BP 150/75; PULSE 57; RESP 16; TEMP 36.5; O2SAT 95
[2020-08-19 02:59] VITALS: PULSE 56
[2020-08-19] MEDS: busPIRone 5 MG Tablet 10 MG PO ×2 (05:27→08:14)
[2020-08-19 06:25] LABS: Absolute Lymphocyte Count 1.42 X10^3/uL (0.83-4.51); Absolute Neutrophil Count 4.9 X10^3/uL (2.0-7.7); Basophil# 0.02 X10^3/uL; Basophil% 0.3 % (0-1); Eosinophil# 0.05 X10^3/uL; Eosinophils% 0.7 % (0-5); Hematocrit 47.6 % (40-54); Hemoglobin 15.4 g/dL (13.0-16.5); Lymphocyte # 1.42 X10^3/ul (4.0); Mean Corp Hgb Conc 32.4 g/dL (32-36); Mean Corpuscular Hgb 29.9 pg (27.0-32.0); Mean Corpuscular Volume 92.4 fL (80-94); Mean Platelet Vol. 9.4 fl (6.2-12.0); Monocyte# 0.76 X10^3/uL; Monocyte% 10.7 % (0-10); NRBC Flagged by Analyzer 0 % (0-5); Neutrophil # 4.85 X10^3/uL (2.7-7.7); Neutrophil % 68.2 % (47-70); Platelet Count 153 K/mm3 (150-450); RBC Distribution Width CV 13.2 % (11.6-14.6); Red Blood Count 5.15 M/mm3 (4.6-6.2); White Blood Count 7.1 K/mm3 (4.4-11.0)
[2020-08-19 06:56] VITALS: O2SAT 92
[2020-08-19 07:00] VITALS: PULSE 75
[2020-08-19 07:00] LABS: Anion Gap 4 (5-15); BUN 16 mg/dL (7-18); BUN/Creat Ratio 21.6 RATIO (10-20); Chloride 106 mmol/L (98-107); Creatinine, Serum 0.74 mg/dL (0.70-1.30); EST Glomerular Filtration Rate 110 mL/min (>60); Est Glom Filt Rate - Afr Amer 133 mL/min (>60); Estimated Creatinine Clearance 64.81 ml/min; Glucose 95 mg/dL (74-106); Potassium 3.5 mmol/L (3.5-5.1); Sodium Level 140 mmol/L (136-145)
[2020-08-19 08:04] VITALS: BP 145/73; PULSE 60; RESP 18; TEMP 36.8; O2SAT 92
[2020-08-19] MEDS: Mirabegron 25 MG TAB.ER.24H PO (08:14)
[2020-08-19] MEDS: Memantine Hydrochloride 10 MG Tablet PO (08:14)
[2020-08-19] MEDS: ALPRAZolam 0.5 MG Tablet 1 MG PO (08:14)
[2020-08-19] MEDS: Divalproex Sodium 125 MG Tablet PO (08:14)
[2020-08-19] MEDS: Aspirin E.C. 81 MG Tablet PO (08:14)
[2020-08-19] MEDS: Pantoprazole Sodium 40 MG Tablet PO (08:14)
[2020-08-19] MEDS: Escitalopram Oxalate 10 MG Tablet 20 MG PO (08:15)
--- NOTE | 2020-08-19 10:44 | CASEMGMT ---
Pt is from [facility] unit and pt is confused at this time. Call to pt's daughter, Mei Brush, at this time to obtain verbal signature for RASMUSSEN form at this time, explanation done-voices understanding, and daughter give verbal ok for signature. Original RASMUSSEN form to chart and copy left with pt's folder in the room as well as copy of [facility] IP vs OBS booklet at this time. Daughter states she will come pick pt up when ready for discharge. Daughter voices no further questions/concerns/needs at this time. Gary RN CM
--- NOTE | 2020-08-19 11:14 | DCINST_ITS ---
You will use the following diet at home:: No restrictions Discharge Activity: Return to Normal Activity Call your doctor if you observe: Shortness of breath, Dizziness, Fainting spells, Chest pain Allergies/Adverse Reactions: Allergies No Known Allergies Allergy (Verified 08/17/20 10:52) Medications to take at Discharge aspirin 81 mg tablet,delayed release 81 mg PO QDAY tab 12/20/17 donepezil 23 mg tablet 23 mg PO QHS tab 12/20/17 memantine 10 mg tablet 10 mg PO BID 12/20/17 naproxen sodium 220 mg tablet 220 mg PO Q8H PRN tab 12/20/17 pravastatin 40 mg tablet 40 mg PO QHS 12/20/17 acetaminophen 325 mg capsule 325 mg PO Q4H PRN cap 05/09/20 alprazolam 0.5 mg tablet 1 mg PO BID tab 05/09/20 colestipol 1 gram tablet 1 g PO 4X/DAY PRN 05/09/20 cyanocobalamin (vitamin B-12) 1,000 mcg/mL injection kit 1,000 mcg IM UD 05/09/20 escitalopram oxalate 10 mg tablet 20 mg PO QDAY tab 05/09/20 omeprazole 40 mg capsule,delayed release 40 mg PO DAILY 05/09/20 pramipexole 0.25 mg tablet 0.25 mg PO QHS 05/09/20 Acetaminophen 500 mg PO TID 08/17/20 Buspirone HCl 10 mg PO TID 08/17/20 Divalproex Sodium [Depakote] 125 mg PO DAILY 08/17/20 Divalproex Sodium [Depakote] 250 mg PO QHS 08/17/20 Mirabegron [Myrbetriq] 25 mg PO DAILY 08/17/20 hydrOXYzine pamoate capsule [Vistaril pamoate capsule] 25 mg PO BID PRN PRN 08/17/20 Primary Care Physician: [facility] Doctor,Out of [NON-STAFF] - Please follow up with your Primary Care Physician in: 1 Week Test Results: Test results from this visit will be discussed in further detail at your follow- up appointment, if applicable. Please Follow Up With: Amor Doshi MD When: As scheduled 09/17/2020 Proposed Discharge Date: 08/19/20
--- NOTE | 2020-08-19 11:16 | PCM.DC.SUM ---
<Sury Campos BULL CHAIN OPERATOR - Last Filed: 08/19/20 11:39> Discharge Date and Diagnosis Date of Admission: 08/17/20 Date of Discharge: 08/19/20 - Primary Discharge Diagnosis Acute Problems: 1. Shuffling gait, CVA ruled out. Suspect secondary to advanced dementia. 2. Moderately advanced Alzheimer's dementia with history of behavioral disturbances 3. Elevated blood pressure without history of hypertension 4. Depression/anxiety 5. Hyperlipidemia Hospital Course and Treatment Imaging Results: Diagnostic Data Brain CT 08/17/20 10:50 IMPRESSION: Mild age-related changes of the brain. Electronically Signed: Juan Chinchilla DO at 11:15 EDT Tel [phone], Service support , ADDENDUM: 08/17/20 1122 IMPRESSION: Mild age-related changes of the brain. N.B. : The above information has been verbally conveyed by Juan Chinchilla DO to Dr. Mac [id number], on 08/17/2020 11:15:24 (ET). Electronically Signed: Juan Chinchilla DO at 11:15 EDT Tel [phone], Service support , Chest X-Ray 08/17/20 11:00 IMPRESSION: Normal x-ray examination of the chest. Electronically Signed: Jamar Lopez MD at 11:30 EDT Tel , Service support , Brain MRI 08/18/20 09:00 IMPRESSION: Involutional changes of the brain, as described above. No acute infarct. Electronically Signed: Jamar Lopez MD at 11:36 EDT Tel , Service support , Head MRA 08/18/20 09:00 IMPRESSION: Normal MRA of the head Electronically Signed: Jamar Lopez MD at 12:08 EDT Tel , Service support , Neck MRA 08/18/20 09:00 IMPRESSION: Normal bilateral cervical carotid and vertebral arteries. Electronically Signed: Jamar Lopez MD at 12:11 EDT Tel , Service support , Operations: None Procedures: None Summary of Care Provided: The patient is a 74 year old M admitted 08/17/2020 due to shuffling gait, leaning to left side. 1. Shuffling gait, CVA ruled out. Suspect secondary to advanced dementia. MRI of brain with involutional changes of the brain. No acute infarct. MRA of neck with normal bilateral cervical carotid and vertebral arteries. Patient on aspirin and statin at baseline. Urinalysis and chest x-ray unremarkable. Follow-up with PCP in 1 week and neurology as scheduled. Family voices concern patient is overmedicated. Did reduce home alprazolam to 0.5 mg twice daily. Further adjustment and outpatient follow-up per primary neurology. 2. Moderately advanced Alzheimer's dementia with history of behavioral disturbances-following with Dr. Doshi, neurology. On memantine, donepezil. Continue outpatient follow-up with neurology. Resides at assisted living/memory care unit. 3. Elevated blood pressure without history of hypertension-initiated on lisinopril 5 mg daily. Further blood pressure monitoring as outpatient. 4. Depression/anxiety-on buspirone, escitalopram, alprazolam. 5. Hyperlipidemia-continue statin. Patient seen and examined prior to discharge. Physical assessment as noted below. Patient is stable for discharge with follow up recommendations as noted above. This patient was seen by HEMALATHA William under the supervision of Dr. Lopez. - Physical Exam Vitals/I&O's: Vital Signs Temp Pulse Resp BP Pulse Ox 98.2 F 60 18 145/73 H 92 08/19/20 08:04 08/19/20 08:04 08/19/20 08:04 08/19/20 08:04 08/19/20 08:04 Oxygen Delivery Method Room Air Weight: 183 lb 10.321 oz Body Mass Index (BMI) 27.1 Finger Stick Blood Glucose 108 Intake and Output for Last 24 Hours 08/17/20 08/18/20 08/19/20 23:59 23:59 23:59 Intake Total 300 / 300 240 / 340 100 / 100 Output Total 400 / 400 Balance -100 / -100 240 / 340 100 / 100 General: Alert, Cooperative, No apparent distress HEENT: Atraumatic, PERRLA, EOMI, Normocephalic Neck: Supple, No JVD, Negative Carotid Bruits Lungs: Clear to auscultation, Normal air movement Cardiovascular: Regular rate, No murmurs Abdomen: Bowel Sounds Present, Soft, Non Tender, Non-Distended Extremities: No clubbing, No cyanosis, No edema, Capillary Refill Less than 3 Seconds Skin: No rashes, No breakdown Musculoskeletal: No Tenderness to Palpation of Joints or Extremities Neurological: Cranial nerves II-XII grossly intact, Neuro grossly intact Psych/Mental Status: Flat Affect Laboratory Results 08/18/20 12:29: COVID-19 (ERIKA) Not Detected 08/19/20 06:18: WBC 7.1, RBC 5.15, Hgb 15.4, Hct 47.6, MCV 92.4, MCH 29.9, MCHC 32.4, RDW Std Deviation 45.0 H, RDW Coeff of Ryan 13.2, Plt Count 153, MPV 9.4, Immature Gran % (Auto) 0.100, Neut % (Auto) 68.2, Lymph % (Auto) 20.0, [place] % (Auto) 10.7 H, Eos % (Auto) 0.7, Baso % (Auto) 0.3, Absolute Neuts (auto) 4.9, Absolute Lymphs (auto) 1.42, Nucleated RBC % 0 08/19/20 06:18: Sodium 140, Potassium 3.5, Chloride 106, Carbon Dioxide 30.0, Anion Gap 4 L, BUN 16, Creatinine 0.74, Estim Creat Clear Calc 64.81, Est GFR (MDRD) Af Amer 133, Est GFR (MDRD) Non-Af 110, BUN/Creatinine Ratio 21.6 H, Glucose 95, Calcium 9.0 Current Medications Acetaminophen (Acetaminophen 325 Mg Tablet) 325 mg PO Q4H PRN PRN Reason: Pain 1-10 or Fever Alprazolam (Alprazolam 0.5 Mg Tablet) 1 mg PO BID IVÁN Last Admin: 08/19/20 08:14 Dose: 1 mg Documented by: Aspirin (Aspirin E.C. 81 Mg Tablet) [facility] Last Admin: 08/19/20 08:14 Dose: 81 mg Documented by: Atorvastatin Calcium (Atorvastatin Calcium 80 Mg Tablet) 80 mg PO QHS [facility] Last Admin: 08/18/20 20:39 Dose: 80 mg Documented by: Buspirone HCl (Buspirone 5 Mg Tablet) 10 mg PO TID [facility] Last Admin: 08/19/20 08:14 Dose: 10 mg Documented by: Colestipol HCl (Colestipol Hcl 1 Gm Tablet) 1 gm PO DAILY [facility] Last Admin: 08/19/20 08:14 Dose: 1 gm Documented by: Cyanocobalamin (Cyanocobalamin (B12) 1,000 Mcg/Ml Vial) 1,000 mcg IM Q60D [facility] Divalproex Sodium (Divalproex Sodium 125 Mg Tablet) [facility] Last Admin: 08/19/20 08:14 Dose: 125 mg Documented by: Divalproex Sodium (Divalproex Sodium 250 Mg Tablet) 250 mg PO QHS [facility] Last Admin: 08/18/20 20:39 Dose: 250 mg Documented by: Donepezil HCl (Donepezil Hcl 10 Mg Tablet) 20 mg PO QHS [facility] Last Admin: 08/18/20 20:39 Dose: 20 mg Documented by: Escitalopram Oxalate (Escitalopram Oxalate 10 Mg Tablet) 20 mg PO DAILY [facility] Last Admin: 08/19/20 08:15 Dose: 20 mg Documented by: Hydralazine HCl (Hydralazine 20 Mg/Ml Vial) 5 mg IV Q30M PRN PRN Reason: to maintain BP goals Hydroxyzine Pamoate (Hydroxyzine Génesis 25 Mg Capsule) 25 mg PO BID PRN PRN PRN Reason: ANXIETY Sodium Chloride () 500 mls @ 15 mls/hr IV PRN PRN PRN Reason: Blood Transfusion Sodium Chloride () 250 mls @ 15 mls/hr IV .[id number] PRN PRN Reason: Saline Flush Sodium Chloride () 250 mls @ 15 mls/hr IV .[id number] PRN PRN Reason: Additional IVPB Infusion Labetalol HCl (Labetalol (Prefilled) 20 Mg/4 Ml) 10 - 20 mg IV Q10M PRN PRN PRN Reason: to Maintain BP Goals Memantine (Memantine Hydrochloride 10 Mg Tablet) 10 mg PO BID [facility] Last Admin: 08/19/20 08:14 Dose: 10 mg Documented by: Mirabegron (Mirabegron 25 Mg Tab.Er.24h) 25 mg PO DAILY [facility] Last Admin: 08/19/20 08:14 Dose: 25 mg Documented by: Naproxen (Naproxen 250 Mg Tablet) 250 mg PO Q12H PRN PRN Reason: Pain Score 1-10 Nitroglycerin (Nitroglycerin (Inpatient Use) 0.4 Mg Tab.Subl) 0.4 mg SUBLINGUAL Q5M PRN PRN Reason: CARDIAC/CHEST PAIN Ondansetron HCl (Ondansetron 4 Mg/2 Ml Vial) 4 mg IV Q8H PRN PRN PRN Reason: NAUSEA/VOMITING Pantoprazole Sodium (Pantoprazole Sodium 40 Mg Tablet) 40 mg PO DAILY [facility] Last Admin: 08/19/20 08:14 Dose: 40 mg Documented by: Pramipexole Dihydrochloride (Pramipexole Di-Hcl 0.25 Mg Tablet) 0.25 mg PO QHS [facility] Last Admin: 08/18/20 20:39 Dose: 0.25 mg Documented by: Sodium Chloride (0.9% Saline Lock 10 Ml Syringe) 10 - 40 ml IV UD PRN PRN Reason: SALINE FLUSH Last Admin: 08/18/20 09:17 Dose: 10 ml Documented by: Discharge Diet: No Restrictions Discharge Activity: Return to Normal Activity Call your doctor if you observe: Shortness of breath, Dizziness, Fainting spells, Chest pain Home Medications: Medications to take at Discharge aspirin 81 mg tablet,delayed release 81 mg PO QDAY tab 12/20/17 donepezil 23 mg tablet 23 mg PO QHS tab 12/20/17 memantine 10 mg tablet 10 mg PO BID 12/20/17 naproxen sodium 220 mg tablet 220 mg PO Q8H PRN tab 12/20/17 pravastatin 40 mg tablet 40 mg PO QHS 12/20/17 acetaminophen 325 mg capsule 325 mg PO Q4H PRN cap 05/09/20 colestipol 1 gram tablet 1 g PO 4X/DAY PRN 05/09/20 cyanocobalamin (vitamin B-12) 1,000 mcg/mL injection kit 1,000 mcg IM UD 05/09/20 escitalopram oxalate 10 mg tablet 20 mg PO QDAY tab 05/09/20 omeprazole 40 mg capsule,delayed release 40 mg PO DAILY 05/09/20 pramipexole 0.25 mg tablet 0.25 mg PO QHS 05/09/20 Acetaminophen 500 mg PO TID 08/17/20 Buspirone HCl 10 mg PO TID 08/17/20 Divalproex Sodium [Depakote] 125 mg PO DAILY 08/17/20 Divalproex Sodium [Depakote] 250 mg PO QHS 08/17/20 Mirabegron [Myrbetriq] 25 mg PO DAILY 08/17/20 hydrOXYzine pamoate capsule [Vistaril pamoate capsule] 25 mg PO BID PRN PRN 08/17/20 Alprazolam [Xanax] 0.5 mg PO BID #0 tab 08/19/20 Lisinopril [Zestril] 5 mg PO DAILY #30 tab 08/19/20 Following Prescriptions Were Given to Patient: Lisinopril [Zestril] 5 mg PO DAILY #30 tab Prescription Printed Primary Care Physician: [facility] Doctor,Out of [NON-STAFF] - Please follow up with your Primary Care Physician in: 1 Week Please Follow Up With: Amor Doshi MD When: As scheduled 09/17/2020 Disposition: Asstd Living/Non-Skill NH Minutes spent on discharge:: 35 Patient Condition:: Stable Medical Necessity - Tobacco Use Smoking Status: Never smoker Meaningful Use Info Meaningful Use Diagnoses (Choose all that apply): None applicable <Juan Carlos Lopez - Last Filed: 08/19/20 16:28> Hospital Course and Treatment Operations: None Procedures: None Summary of Care Provided: Patient seen and examined independently. Data reviewed. I agree with the above note by the physician pharmacy sales assistant. The patient is a 74 year old M presents with shuffling gait and noted to be leaning to his left side. Patient underwent an MRI of the brain as well as MRA of the head and neck showed no acute process. No stroke. Is felt that these issues were not acute and may be more of just his progressive debility. Patient may follow-up with neurology as outpatient for more of a further dementia evaluation. [] - Physical Exam Vitals/I&O's: Vital Signs Temp Pulse Resp BP Pulse Ox 36.6 C 71 18 96/58 L 93 08/19/20 14:00 08/19/20 14:00 08/19/20 14:00 08/19/20 14:00 08/19/20 14:00 Oxygen Delivery Method Room Air Weight: 83.3 kg Body Mass Index (BMI) 27.1 Finger Stick Blood Glucose 108 Intake and Output for Last 24 Hours 08/17/20 08/18/20 08/19/20 23:59 23:59 23:59 Intake Total 300 / 300 240 / 340 580 / 580 Output Total 400 / 400 Balance -100 / -100 240 / 340 580 / 580 General: Cooperative, No apparent distress, Confused HEENT: Atraumatic, Normocephalic Lungs: Clear to auscultation, Normal air movement Cardiovascular: Regular rate, No murmurs Abdomen: Bowel Sounds Present, Soft, Non Tender, Non-Distended Extremities: No clubbing, No edema Neurological: Cranial nerves II-XII grossly intact, Neuro grossly intact Laboratory Results 08/19/20 06:18: WBC 7.1, RBC 5.15, Hgb 15.4, Hct 47.6, MCV 92.4, MCH 29.9, MCHC 32.4, RDW Std Deviation 45.0 H, RDW Coeff of Ryan 13.2, Plt Count 153, MPV 9.4, Immature Gran % (Auto) 0.100, Neut % (Auto) 68.2, Lymph % (Auto) 20.0, [place] % (Auto) 10.7 H, Eos % (Auto) 0.7, Baso % (Auto) 0.3, Absolute Neuts (auto) 4.9, Absolute Lymphs (auto) 1.42, Nucleated RBC % 0 08/19/20 06:18: Sodium 140, Potassium 3.5, Chloride 106, Carbon Dioxide 30.0, Anion Gap 4 L, BUN 16, Creatinine 0.74, Estim Creat Clear Calc 64.81, Est GFR (MDRD) Af Amer 133, Est GFR (MDRD) Non-Af 110, BUN/Creatinine Ratio 21.6 H, Glucose 95, Calcium 9.0 Discharge Diet: No Restrictions Discharge Activity: Return to Normal Activity Call your doctor if you observe: Shortness of breath, Dizziness, Fainting spells, Chest pain Disposition: Asstd Living/Non-Skill NH Minutes spent on discharge:: 35 Patient Condition:: Stable Medical Necessity - Tobacco Use Smoking Status: Never smoker Inpatient E&M: 56078 Disch Hosp
--- NOTE | 2020-08-19 11:22 | CASEMGMT ---
MIHAI faxed d/c instructions to [place]. Patient's daughter will transport him back when ready. MIHAI also faxed negative COVID test and COVID transfer form. Ashlyn MURRAY MSW
--- NOTE | 2020-08-19 11:56 | PHA.DC.MR ---
Pharmacy Service has performed discharge medication reconciliation for this patient upon return to [facility]. The patient's discharge medication list was reviewed for discrepancies and discrepancies were resolved. Home Medications aspirin 81 mg tablet,delayed release 81 mg PO QDAY tab 12/20/17 donepezil 23 mg tablet 23 mg PO QHS tab 12/20/17 memantine 10 mg tablet 10 mg PO BID 12/20/17 naproxen sodium 220 mg tablet 220 mg PO Q8H PRN tab 12/20/17 pravastatin 40 mg tablet 40 mg PO QHS 12/20/17 acetaminophen 325 mg capsule 325 mg PO Q4H PRN cap 05/09/20 colestipol 1 gram tablet 1 g PO 4X/DAY PRN 05/09/20 cyanocobalamin (vitamin B-12) 1,000 mcg/mL injection kit 1,000 mcg IM UD 05/09/20 escitalopram oxalate 10 mg tablet 20 mg PO QDAY tab 05/09/20 omeprazole 40 mg capsule,delayed release 40 mg PO DAILY 05/09/20 pramipexole 0.25 mg tablet 0.25 mg PO QHS 05/09/20 Acetaminophen 500 mg PO TID 08/17/20 Buspirone HCl 10 mg PO TID 08/17/20 Divalproex Sodium [Depakote] 125 mg PO DAILY 08/17/20 Divalproex Sodium [Depakote] 250 mg PO QHS 08/17/20 Mirabegron [Myrbetriq] 25 mg PO DAILY 08/17/20 hydrOXYzine pamoate capsule [Vistaril pamoate capsule] 25 mg PO BID PRN PRN 08/17/20 Alprazolam [Xanax] 0.5 mg PO BID #0 tab 08/19/20 Lisinopril [Zestril] 5 mg PO DAILY #30 tab 08/19/20
[2020-08-19 14:00] VITALS: BP 96/58; PULSE 71; RESP 18; TEMP 36.6; O2SAT 93
== END 2020-08-19 11:13 | disposition home or self-care (01) ==
LOC: ED 11:51 → PCU 15:20
PROVIDERS: Admitting Provider Student in an Organized Health Care Education/Training Program; Emergency Provider Emergency Medicine; PCP Family Medicine
DX: R26.89 Other abnormalities of gait and mobility (principal); E78.5 Hyperlipidemia, unspecified; G30.9 Alzheimer's disease, unspecified; F02.81 Dementia in other diseases classified elsewhere, unspecified severity, with behavioral disturbance; F41.9 Anxiety disorder, unspecified; F32.9 Major depressive disorder, single episode, unspecified; Z79.899 Other long term (current) drug therapy; Z79.82 Long term (current) use of aspirin; I10 Essential (primary) hypertension; M19.90 Unspecified osteoarthritis, unspecified site; R00.1 Bradycardia, unspecified; Z87.891 Personal history of nicotine dependence; R06.09 Other forms of dyspnea; R29.700 NIHSS score 0
CPT/HCPCS: 36415; 70450; 70544; 70549; 70551; 71045; 80048; 80061; 81001; 82962; 84484; 85025; 85610; 85730; 87635; 92610; 93005; 94762; 97162; 97165; 97530; 97535; 97802; 99218; 99285; A9575; A4216; G0378; U0002

== ENCOUNTER 2020-09-02 15:52 | Emergency (ER) | payer MEDICARE, OTHER, BC, SELFPAY ==
[2020-08-17 23:49] VITALS: BMI 27.1
[2020-09-02 15:54] VITALS: BP 151/86; PULSE 57; RESP 18; TEMP 37.1; O2SAT 96; BMI 29.4
--- NOTE | 2020-09-02 15:59 | EKG12_ITS ---
Test Reason : ALT LOC Blood Pressure : / mmHG Vent. Rate : 055 BPM Atrial Rate : 055 BPM P-R Int : 132 ms QRS Dur : 088 ms QT Int : 488 ms P-R-T Axes : 066 -42 037 degrees QTc Int : 466 ms Sinus bradycardia Left axis deviation Abnormal ECG Confirmed by TACO ESPINOSA, VAMSI ([id number]), international editorial producer AUBREE CASTELLANOS ([id number]) on 09/04/2020 8:41:41 AM Referred By: Confirmed By:VAMSI ESPAÑA MD
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
--- NOTE | 2020-09-02 16:19 | CT_ITS ---
STUDY: CT BRAIN WITHOUT CONTRAST REASON FOR EXAM: Male, 74 years old. Altered LOC, dementia, weakness, change in psych meds RADIATION DOSAGE (If Supplied By Facility): CTDIvol = ( 44.99 ) mGy, DLP = ( 829.85 ) mGycm TECHNIQUE: Transaxial CT imaging of the brain was performed without administration of intravenous contrast material. Individualized dose optimization techniques were used for this CT. COMPARISON: 08/17/2020 FINDINGS: Normal soft tissue structures. Normal calvarium. Calcification of cavernous carotids Moderate atrophy and advanced periventricular white matter ischemic changes. Normal white matter tracts of the cerebral hemispheres. Normal basal ganglia and thalami. Normal brainstem. Normal cerebellum. There is no intracranial hemorrhage. There are no findings of an acute ischemic infarction. Mucosal thickening of the external auditory canals bilaterally. Normal visualized paranasal sinuses. CT/Brain/Head without Contrast IMPRESSION: Moderate atrophy and advanced periventricular white matter ischemic change. No evidence for acute bleed. If concern for acute infarct MRI recommended Electronically Signed: Geoff Clement MD at 16:52 EST , Service support ,
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
[2020-09-02 16:31] LABS: Absolute Lymphocyte Count 1.29 X10^3/uL (0.83-4.51); Absolute Neutrophil Count 3.9 X10^3/uL (2.0-7.7); Basophil# 0.03 X10^3/uL; Basophil% 0.5 % (0-1); Eosinophil# 0.06 X10^3/uL; Hematocrit 46.5 % (40-54); Hemoglobin 14.9 g/dL (13.0-16.5); Lymphocyte # 1.29 X10^3/ul (4.0); Lymphocyte % 22.1 % (19-41); Mean Corpuscular Hgb 30.1 pg (27.0-32.0); Mean Corpuscular Volume 93.9 fL (80-94); Mean Platelet Vol. 9.6 fl (6.2-12.0); Monocyte# 0.53 X10^3/uL; Monocyte% 9.1 % (0-10); NRBC Flagged by Analyzer 0 % (0-5); Neutrophil # 3.92 X10^3/uL (2.7-7.7); Neutrophil % 67.1 % (47-70); Platelet Count 181 K/mm3 (150-450); RBC Distribution Width CV 13.6 % (11.6-14.6); Red Blood Count 4.95 M/mm3 (4.6-6.2); White Blood Count 5.8 K/mm3 (4.4-11.0)
[2020-09-02 16:46] LABS: AST(SGOT) 15 U/L (15-37); Alanine Aminotransfer ALT/SGPT 28 U/L (16-61); Albumin, Serum 3.2 g/dL (3.2-5.0); Alkaline Phosphatase 80 U/L (45-117); Anion Gap 4 (5-15); BUN 18 mg/dL (7-18); Calcium,Total 8.7 mg/dL (8.5-10.1); Chloride 107 mmol/L (98-107); Creatinine, Serum 0.86 mg/dL (0.70-1.30); EST Glomerular Filtration Rate 93 mL/min (>60); Est Glom Filt Rate - Afr Amer 112 mL/min (>60); Estimated Creatinine Clearance 70.46 ml/min; Globulin 3.2 g/dL (2.2-4.2); Glucose 115 mg/dL (74-106); Protein, Total 6.4 g/dL (6.4-8.2); Sodium Level 143 mmol/L (136-145); Thyroid Stim Hormone (TSH) 1.11 uIU/mL (0.358-3.74)
[2020-09-02 17:22] LABS: Bacteria 0 SEEN /hpf (None Seen); Mucous, Urine 0 SEEN /hpf (<or=2+)
[2020-09-02 17:25] VITALS: BP 151/86; PULSE 55; RESP 16
[2020-09-02 17:25] LABS: Valproic Acid (Depakene) Level 26 ug/mL (50-100)
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
[2020-09-02 18:00] VITALS: BP 163/89; PULSE 57; RESP 14
[2020-09-02 18:06] LABS: Amphetamine Urine VISTA NEGATIVE (<1000 ng/mL); Barbiturate Urine VISTA NEGATIVE (< 200 ng/mL); Benzodiazepine Urine VISTA POSITIVE (< 200 ng/mL); Cocaine Urine VISTA NEGATIVE (< 300 ng/mL); Ecstacy Urine VISTA NEGATIVE (< 500 ng/mL); Methadone Urine VISTA NEGATIVE (< 300 ng/mL); PCP Urine VISTA NEGATIVE (< 25 ng/mL); THC Urine VISTA NEGATIVE (< 50 ng/mL); Vista UDS pH Range 5
[2020-09-02 18:10] LABS: Color, Urine Yellow (Yellow); Glucose, Dipstick Normal (Normal); Ketone-Dipstick 5 mg/dl (Negative); Leukocyte Esterase-Dipstick 25 /ul (Negative); Nitrite-Dipstick Negative (Negative); Occult Blood-Urine Negative /ul (Negative); Protein-Dipstick 15 mg/dl (Negative); Urine Bilirubin Dipstick Negative (Negative); Urine Clarity Clear (Clear); Urine Urobilinogen Normal (Normal)
--- NOTE | 2020-09-02 18:45 | CM.ED ---
Social Work Telephone call to [facility]. Referral made. Clinical information faxed. [facility] reports to have open beds and to accept patient insurance. Pending clinical review. Chandrakant DENT, JIGAR
[2020-09-02 19:00] LABS: Red Blood Cells-Urine 0-5 SEEN /hpf (0-5); White Blood Cells 0-5 SEEN /hpf (0-5)
[2020-09-02 19:01] LABS: Squamous Epithelial Cells - UA 0-5 SEEN /hpf (0-5)
[2020-09-02 19:45] VITALS: BP 148/84; PULSE 56; RESP 18
--- NOTE | 2020-09-02 20:26 | CM.ED ---
Social Work Telephone call to Cindy Morales. This certified social workers in health care inquiring about status of patient case. Cindy reports to be pending facility return agreement. Cindy states to not anticipate that there will be an issue with accepting patient but Magdy will need to get the return agreement to [facility] before formal acceptance can occur. Updated medical team and patient/patient family. Chandrakant DENT, TERRI-S
--- NOTE | 2020-09-02 21:07 | CM.ED ---
Addendum entered by Vielka Felder 09/02/20 21:18: [facility] reports to have transportation set up for 21:40. Team updated. Original Note: Social Work Telephone call from Marisabel Morales. Patient has been accepted by Dr. Estella Young. Nurse to call report to [phone]. Updated medical team, patient, and patient daughter, Mei. All agreeable to plan. PLAN: Transfer to [facility]. Chandrakant Felder MSW, TERRI-S
[2020-09-02 23:10] VITALS: BP 190/87; PULSE 58; RESP 18
== END 2020-09-02 23:11 ==
PROVIDERS: Emergency Provider Emergency Medicine; PCP Family Medicine
DX: F03.91 Unspecified dementia, unspecified severity, with behavioral disturbance (principal); R00.1 Bradycardia, unspecified; Z79.899 Other long term (current) drug therapy
CPT/HCPCS: 70450; 71045; 80053; 80164; 80307; 80320; 81001; 84443; 84484; 85025; 87635; 93005; 99285; A4216; G0480; U0002

== ENCOUNTER → 2020-10-04 06:00 | Outpatient (REF) | payer MEDICARE, OTHER, BC, SELFPAY ==
[2020-10-04 07:49] LABS: Hematocrit 47.7 % (40-54); Hemoglobin 15.4 g/dL (13.0-16.5); Mean Corp Hgb Conc 32.3 g/dL (32-36); Mean Corpuscular Hgb 30.5 pg (27.0-32.0); Mean Corpuscular Volume 94.5 fL (80-94); Mean Platelet Vol. 10.1 fl (6.2-12.0); Platelet Count 171 K/mm3 (150-450); RBC Distribution Width CV 13.6 % (11.6-14.6); RBC Distribution Width SD 47.4 fl (35.1-43.9); Red Blood Count 5.05 M/mm3 (4.6-6.2); White Blood Count 5.2 K/mm3 (4.4-11.0)
[2020-10-04 08:05] LABS: Anion Gap 3 (5-15); BUN 12 mg/dL (7-18); BUN/Creat Ratio 19.6 RATIO (10-20); Calcium,Total 8.8 mg/dL (8.5-10.1); Chloride 107 mmol/L (98-107); Creatinine, Serum 0.61 mg/dL (0.70-1.30); EST Glomerular Filtration Rate 136 mL/min (>60); Est Glom Filt Rate - Afr Amer 165 mL/min (>60); Glucose 86 mg/dL (74-106); Potassium 3.7 mmol/L (3.5-5.1); Sodium Level 141 mmol/L (136-145)
== END ==
LOC: OLS.BROOKB 06:00
PROVIDERS: PCP Family Medicine; Referring Provider Family Medicine; Visit Provider Family Medicine
DX: F03.90 Unspecified dementia, unspecified severity, without behavioral disturbance, psychotic disturbance, mood disturbance, and anxiety (principal)
CPT/HCPCS: 36415; 80048; 85027

== ENCOUNTER → 2020-10-04 17:59 | Outpatient (REF) | payer MEDICARE, OTHER, BC, SELFPAY ==
[2020-10-04 18:05] LABS: Color, Urine Yellow (Yellow); Glucose, Dipstick Normal (Normal); Ketone-Dipstick 5 mg/dl (Negative); Leukocyte Esterase-Dipstick 25 /ul (Negative); Nitrite-Dipstick Negative (Negative); Occult Blood-Urine 10 /ul (Negative); Protein-Dipstick 15 mg/dl (Negative); Specific Gravity, Urine 1.015 (1.002-1.030); Urine Bilirubin Dipstick Negative (Negative); Urine Clarity Clear (Clear); Urine Urobilinogen Normal (Normal)
== END ==
LOC: OLS.BROOKB 17:59
PROVIDERS: PCP Family Medicine; Referring Provider Family Medicine; Visit Provider Family Medicine
DX: F03.90 Unspecified dementia, unspecified severity, without behavioral disturbance, psychotic disturbance, mood disturbance, and anxiety (principal); R41.0 Disorientation, unspecified
CPT/HCPCS: 36415; 80048; 81002; 85027; 87086; 87088

== ENCOUNTER → 2020-10-28 05:00 | Outpatient (REF) | payer MEDICARE, OTHER, BC, SELFPAY ==
[2020-10-28 09:07] LABS: AST(SGOT) 18 U/L (15-37); Alanine Aminotransfer ALT/SGPT 22 U/L (16-61); Anion Gap 5 (5-15); BUN 15 mg/dL (7-18); BUN/Creat Ratio 21.7 RATIO (10-20); Chloride 104 mmol/L (98-107); Cholesterol 147 mg/dL (200); Creatinine, Serum 0.69 mg/dL (0.70-1.30); EST Glomerular Filtration Rate 118 mL/min (>60); Est Glom Filt Rate - Afr Amer 143 mL/min (>60); Glucose 96 mg/dL (74-106); High Density Lipoprotein 50 mg/dL; Potassium 3.6 mmol/L (3.5-5.1); Sodium Level 141 mmol/L (136-145); Triglycerides 92 mg/dL; Very Low Density Lipoprotein 18 mg/dL (5-40)
== END ==
LOC: OLS.BROOKB 05:00
PROVIDERS: PCP Family Medicine; Visit Provider Family Medicine
DX: E78.5 Hyperlipidemia, unspecified (principal); Z79.899 Other long term (current) drug therapy
CPT/HCPCS: 36415; 80048; 80061; 84450; 84460

== ENCOUNTER → 2020-11-19 16:00 | Outpatient (REF) | payer SELFPAY ==
[2020-11-21 15:54] LABS: Color, Urine Yellow (Yellow); Glucose, Dipstick Normal (Normal); Ketone-Dipstick 5 mg/dl (Negative); Leukocyte Esterase-Dipstick 25 /ul (Negative); Nitrite-Dipstick Negative (Negative); Occult Blood-Urine Negative /ul (Negative); Protein-Dipstick 15 mg/dl (Negative); Urine Bilirubin Dipstick Negative (Negative); Urine Clarity Clear (Clear); Urine Urobilinogen 1 mg/dl (Normal)
== END ==
LOC: OLS.BROOKB 16:00
PROVIDERS: PCP Family Medicine; Visit Provider Nurse Practitioner Acute Care
DX: R53.83 Other fatigue (principal); R41.0 Disorientation, unspecified
CPT/HCPCS: 81002; 87086; 87088